=== PATIENT | female | born 1970 | race Caucasian/White ===

== ENCOUNTER 2019-07-20 08:32 | Emergency (ER) | payer BC, SELFPAY ==
[2019-07-20 08:32] VITALS: TEMP 37.3
== END 2019-07-20 08:50 | disposition left against medical advice (07) ==
LOC: EXPBETH 10:26
PROVIDERS: Emergency Provider Nurse Practitioner
DX: Z53.21 Procedure and treatment not carried out due to patient leaving prior to being seen by health care provider (principal)
CPT/HCPCS: 99199